=== PATIENT | female | born 1985 | race Native Hawaiian/Other Pacific Islander ===

== ENCOUNTER 2021-02-27 11:03 | Emergency (ER) | payer OTHER ==
[~2021-02-27] VITALS: Ht 167.6 cm; Wt 58.1 kg
[2021-02-27 12:22] VITALS: BP 110/69; TEMP 97.7
== END 2021-02-27 12:23 ==
LOC: ED 11:03
DX: N76.0 Acute vaginitis (principal)
CPT/HCPCS: 81000; 81025; 96372; 99284; J0696; J1885

== ENCOUNTER 2022-08-29 12:25 | Outpatient (CLI) | payer OTHER | END 2022-08-29 19:35 | disposition home or self-care (01) | LOC: RAD 12:25 | PROVIDERS: ATTEND Nurse Practitioner Family | DX: M54.89 Other dorsalgia (principal); Z13.31 Encounter for screening for depression ==

== ENCOUNTER 2022-08-31 09:47 | Outpatient (CLI) | payer OTHER | END 2022-08-31 19:54 | disposition home or self-care (01) | LOC: RAD 09:47 | PROVIDERS: ATTEND Nurse Practitioner Family | DX: M54.89 Other dorsalgia (principal); Z13.1 Encounter for screening for diabetes mellitus; Z13.220 Encounter for screening for lipoid disorders; Z76.89 Persons encountering health services in other specified circumstances; R53.83 Other fatigue ==

== ENCOUNTER 2023-06-28 16:59 | Emergency (ER) | payer OTHER ==
[~2023-06-28] VITALS: Ht 167.6 cm; Wt 68.0 kg
[2023-06-28 17:45] VITALS: BP 122/72; TEMP 98
== END 2023-06-28 18:50 | disposition home or self-care (01) ==
LOC: ED 16:59
DX: H66.92 Otitis media, unspecified, left ear (principal); H72.92 Unspecified perforation of tympanic membrane, left ear; F17.210 Nicotine dependence, cigarettes, uncomplicated
CPT/HCPCS: 99282